=== PATIENT | male | born 1975 | race Hispanic/Latino ===

== ENCOUNTER 2018-11-13 01:46 | Inpatient (IN) | payer MEDICAID ==
--- NOTE | 2018-11-13 01:59 | C.PDOC ---
History Of Present Illness 43 year old male presents to the ED for evaluation of depression. Patient reports feeling more so tonight, states feeling "wanting to end everything". Patient denies active SI plan, HI, hallucinations, injury, fall, trauma. Chief Complaint (Nursing): Psychiatric Evaluation History Per: Patient History/Exam Limitations: no limitations Onset/Duration Of Symptoms: Days Current Symptoms Are (Timing): Still Present Suicide/Self Injury Attempted (Context): None Associated Symptoms: Depression. denies: Suicidal Thoughts, Suicidal Plan Recent travel outside of the [place]: No Additional History Per: Patient Past Medical History Reviewed: Historical Data, Nursing Documentation, Vital Signs Vital Signs: Last Vital Signs Temp 98.6 F 11/13/18 01:48 Pulse 78 11/13/18 01:48 Resp 20 11/13/18 01:48 BP 130/83 11/13/18 01:48 Pulse Ox 97 11/13/18 01:48 - Medical History PMH: Anxiety, Bipolar Disorder Surgical History: No Surg Hx Family History: States: Unknown Family Hx - Social History Hx Alcohol Use: No Hx Substance Use: No Review Of Systems Constitutional: Negative for: Fever, Chills Cardiovascular: Negative for: Chest Pain Respiratory: Negative for: Shortness of Breath Gastrointestinal: Negative for: Nausea, Vomiting, Abdominal Pain Skin: Negative for: Rash Psych: Positive for: Depression. Negative for: Suicidal ideation Physical Exam - Physical Exam Appears: Non-toxic, No Acute Distress Skin: Normal Color, Warm, Dry Head: Atraumatic, Normacephalic Eye(s): bilateral: Normal Inspection Neck: Normal ROM, Supple Chest: Symmetrical Cardiovascular: Rhythm Regular Respiratory: Normal Breath Sounds, No Rales, No Rhonchi, No Wheezing Gastrointestinal/Abdominal: Soft, No Tenderness Extremity: Normal ROM, No Tenderness, No Swelling Neurological/Psych: Oriented x3, Normal Speech, Normal Cognition Gait: Steady ED Course And Treatment - Laboratory Results Result Diagrams: 11/13/18 02:23 11/13/18 02:23 O2 Sat by Pulse Oximetry: 97 (ON RA) Pulse Ox Interpretation: Normal Medical Decision Making Medical Decision Making: Plan: * Labs * UA * Crisis eval Disposition Discussed With : Audelia Garrison Doctor Will See Patient In The: Hospital Counseled Patient/Family Regarding: Diagnosis - Disposition Disposition: HOSPITALIZED Disposition Time: 03:53 Condition: STABLE Forms: [facility] ([place]) - Clinical Impression Clinical Impression: Bipolar disorder - Scribe Statement The provider has reviewed the documentation as recorded by the Scribe Hay Fulton All medical record entries made by the Scribe were at my direction and personally dictated by me. I have reviewed the chart and agree that the record accurately reflects my personal performance of the history, physical exam, medical decision making, and the department course for this patient. I have also personally directed, reviewed, and agree with the discharge instructions and disposition.
[2018-11-13 02:28] LABS: BASO % 0.4 % (0.0-2.0); EOS # 0.1 K/uL (0.0-0.7); EOS % 0.8 % (0.0-4.0); HEMOGLOBIN 14.8 g/dL (12.0-18.0); LYMPH # 1.9 K/uL (1.0-4.3); LYMPH % 23.2 % (20.0-40.0); MEAN CELL VOLUME 92.6 fL (80.0-94.0); MEAN CORPUSCULAR HEMOGLOBIN 31.6 pg (27.0-31.0); MEAN CORPUSCULAR HGB CONC 34.2 g/dL (33.0-37.0); MEAN PLATELET VOLUME 7.5 fL (7.2-11.7); MONO # 0.6 K/uL (0.0-0.8); MONO % 7.5 % (0.0-10.0); NEUT # 5.5 K/uL (1.8-7.0); NEUT % 68.1 % (50.0-75.0); RBC 4.67 Mil/uL (4.40-5.90); RED CELL DISTRIBUTION WIDTH 13.7 % (11.5-14.5)
[2018-11-13 02:37] LABS: ALB/GLOB RATIO 1.5 (1.0-2.1); ALBUMIN 4.5 g/dL (3.5-5.0); ALT/SGPT 26 U/L (21-72); AST/SGOT 24 U/L (17-59); BLOOD UREA NITROGEN 16 mg/dL (9-20); CALCIUM 9.6 mg/dl (8.6-10.4); GFR NON-AFRICAN AMERICAN > 60
[2018-11-13 03:24] LABS: SQUAMOUS EPITHIAL < 1 /hpf (0-5); URINE BILIRUBIN NEGATIVE (NEGATIVE); URINE BLOOD NEGATIVE (NEGATIVE); URINE CLARITY Hazy (Clear); URINE COLOR Amber (YELLOW); URINE GLUCOSE (UA) NORMAL (Normal); URINE LEUKOCYTE ESTERASE NEG Leu/uL (Negative); URINE PROTEIN 1+ mg/dL (NEGATIVE); URINE UROBILINOGEN NORMAL mg/dL (0.2-1.0)
[2018-11-13 03:33] LABS: BARBITURATES, UR NEGATIVE (NEGATIVE); BENZODIAZEPINES, UR NEGATIVE (NEGATIVE); OPIATES, UR NEGATIVE (NEGATIVE); PHENCYCLIDINE, UR NEGATIVE (NEGATIVE)
--- NOTE | 2018-11-13 05:29 | PCM.BM ---
<Renan Landeros - Last Filed: 11/13/18 05:26> Treatment Plan Problems - Problems identified on initial assessmt Hopelessness/ Helplessness Date Initiated: 11/13/18 Time Initiated: 04:30 Assessment reference: NA Status: Active ALTERED SLEEP PATTERN Date Initiated: 11/13/18 Time Initiated: 04:30 Assessment reference: NA Status: Active INEFFECTIVE COPING Date Initiated: 11/13/18 Time Initiated: 04:30 Assessment reference: NA Status: Active Treatment assets and liabiliti Patient Assests: cooperative, self-reliant, ADL independent, physically healthy, good support system, negotiates basic needs Patient Liabilities: financial problems - Milieu Protocol Maintain good personal hygiene: daily Encourage regular showers, daily Remind patient to perform daily oral care, daily Assist patient to perform ADL's Conduct patient checks and document Observation sheet: Q15 minutes Maintain personal safety: every shift Educate patient to report safety concerns to staff, every shift Monitor environment for contraband/sharps Medication safety: Monitor for expected outcome, potential side effects: every shift, Assess barriers to learning: every shift, Assess readiness for medication education: every shift <Calvin Blair - Last Filed: 11/14/18 11:12> - Diagnosis (1) MDD (major depressive disorder) Status: Acute Interventions: 11/14/18 11:13 * Assess/adjust medications daily and /or as needed * See patient on an individual basis 7x/week to assess symptoms of depression * Monitor for side effects & effectiveness of medications * <Petty Reyes - Last Filed: 11/14/18 15:32> Family Contact Family involvement: Patient does not wish Family/SO involvement Family contact: Patient declines to allow family contact at present - Goals for Treatment Patient goals for treatment: "I want to go to an outpatient program." Discharge/Continuing Care - Education Needs Education Needs: Patient Medication, Patient Diagnosis/Disease Process, Patient Coping Skills, Patient Placement options, Patient Community resources - Discharge Discharge Criteria: Free of Suicidal thoughts, Normal sleep pattern, Ability to care for self, Reduction of target symptoms Discharge to:: Home, With Family - Treatment Team Participation Discussed with Family/SO: No Was Patient/Family/SO present at Treatment Team Meeting: Yes
--- NOTE | 2018-11-13 09:58 | PCM.PSYCH ---
Initial Psychiatric Evaluation - Initial Psychiatric Evaluation Type of Admission: Voluntary Legal Status: Capacity Chief Complaint (in patient's own words): I was feeling extremely depressed and suicidal.' History of Present Illness and Precipitating Events: Patient is a 43 yo CM, who and homeless, came to the with extremely depressed mood and suicidal ideation. Patient reports a long history of depression. He reports that, 'I feel like I'm a danger to myself if I don't get help'. Patient reports history of multiple inpatient psychiatric hospitalizations, last discharged from [facility] 6 months ago. As per the patient he did not follow-up with any psychiatrist after discharge and became noncompliant with that his treatment recommendations. He reports that 2 months ago he left his job and his apartment. As per the patient he became increasingly depressed since then. He reports depressed mood, feelings of hopelessness and helplessness and worthlessness. He reports poor sleep and poor appetite. He reports at times irritability, agitation and anxiety. However he denies any auditory or visual hallucinations any paranoia. He denies any drinking or any substances. Past medical history None reported Current Medications: Active Medications Generic Name Dose Route Start Last Admin Trade Name Freq PRN Reason Stop Dose Admin Hydroxyzine HCl 25 mg 11/13/18 04:51 Atarax PO Q6 PRN Anxiety Pneumococcal Polyvalent Vaccine 0.5 ml 11/14/18 10:00 Pneumovax 23 Vaccine IM 11/14/18 10:01 .ONCE ONE Past Psychiatric History - Past Psychiatric History Previous Treatment History: Inpatient Pertinent Medical Hx (Current Medical&Sleep Prob, Allergies): Allergies Allergy/AdvReac Type Severity Reaction Status Date / Time No Known Allergies Allergy Verified 11/13/18 01:47 Zoloft 200 mg PO DAILY 11/13/18 Review of Systems - Review of Systems All systems: reviewed and no additional remarkable complaints except - Psychiatric Psychiatric: Anxiety, Irritability, Suicidal Ideation Mental Status Examination - Personal Presentation Personal Presentation: Looks stated age - Affect Affect: Constricted, Depressed - Motor Activity Motor Activity: Psychomotor Retardation - Reliability in Providing Information Reliability in Providing Information: Poor, due to altered mood - Speech Speech: Organized - Mood Mood: Depressed, Anxious - Formal Thought Process Formal Thought Process: No Impairment - Obsessions/Compulsions Obsessions: No Compulsions: No - Cognitive Functions Orientation: Person, Place, Situation, Time Sensorium: Alert Attention/Concentration: Attentive Abstract Thinking: [place] Estimate of Intelligence: Below average Judgement: Imparied, as evidence by: Poor judgement, Imparied, as evidence by: Lack of insight into illness - Risk Risk: Suicidal, Diminished functioning - Limitations Limitations: Living alone DSM 5 DX - DSM 5 DSM 5 Diagnosis: Major depressive disorder recurrent severe without psychotic features Generalized anxiety disorder - Recommended/Plan of Treatment Treatment Recommendations and Plan of Treatment: Major depressive disorder recurrent severe without psychotic features Generalized anxiety disorder CBT Psychoeducation Supportive therapy and group therapy Zoloft for depression Hydroxyzine for anxiety Trazodone for insomnia Neurontin for augmentation - Smoking Cessation Smoking Cessation Initiated: No
[2018-11-14] MEDS ORDERED: Pneumococcal 23-Valent Vaccine IM ONE (10:00)
--- NOTE | 2018-11-14 10:43 | PCM.PYCHPN ---
Psychiatric Progress Note - Psychiatric Progress Note Patient seen today, length of contact: 15 min Patient Chief Complaint: I was feeling extremely depressed and suicidal.' Problems Identified/Issues Discussed: Patient was seen and evaluated, chart reviewed and discussed the staff. Patient still reports depressed mood, and feelings of hopelessness and helplessness. He reports poor sleep and appetite. He reports irritability, and anxiety. However he is taking medication but denies any side effects. Supportive therapy was given Medication Change: Yes Medical Record Reviewed: Yes Mental Status Examination - Cognitive Function Orientation: Person, Place, Situation, Time Memory: Intact Attention: WNL Concentration: Poor Association: WNL Fund of Knowledge: Poor - Mood Mood: Depressed, Anxious - Affect Affect: Constricted, Depressed - Speech Speech: Soft - Formal Thought Process Formal Thought Process: No Impairment - Suicidal Ideation Suicidal Ideation: No - Homicidal Ideation Homicidal Ideation: No Goal/Treatment Plan - Goal/Treatment Plan Need for Continued Stay: Remain at risks for inpatient hospitalization Progress Toward Problem(s) and Goals/Treatment Plan: Major depressive disorder recurrent severe without psychotic features Generalized anxiety disorder CBT Psychoeducation Supportive therapy and group therapy Zoloft for depression Hydroxyzine for anxiety Trazodone for insomnia Neurontin for augmentation [place] for the mood
--- NOTE | 2018-11-15 22:52 | PCM.PYCHPN ---
Psychiatric Progress Note - Psychiatric Progress Note Patient seen today, length of contact: 15 min Patient Chief Complaint: I am feeling little better. Problems Identified/Issues Discussed: Patient seen, chart reviewed, case discussed with the staff. Issues related to illness and treatment were discussed with the patient and staff. Reported compliant with treatment with no adverse effects. Tolerating treatment very well. Mood reported as anxious. Affect appropriate. Aftercare discussed with the patient. Denied any delusions, auditory or visual hallucinations, no suicidal ideations or homicidal ideations at the time of evaluation. Medical Problems: None reported Diagnostic Results: Reviewed DSM 5 Symptoms Update: Some improvement with treatment. Medication Change: No Medical Record Reviewed: Yes Mental Status Examination - Cognitive Function Orientation: Person, Place, Situation, Time Memory: Intact Attention: WNL Concentration: WNL Association: WN Fund of Knowledge: [facility] Decription of patient's judgement and insights: Fair - Mood Mood: Anxious - Affect Affect: Other (Appropriate) - Speech Speech: Soft - Formal Thought Process Formal Thought Process: No Impairment Psychotic Thoughts and Behaviors: None - Suicidal Ideation Suicidal Ideation: No - Homicidal Ideation Homicidal Ideation: No Goal/Treatment Plan - Goal/Treatment Plan Need for Continued Stay: Remain at risks for inpatient hospitalization, Discharge may exacerbated symptoms, Severe functional impairment Progress Toward Problem(s) and Goals/Treatment Plan: Patient education. Supportive therapy. Continue treatment as before. Estimated Date of D/C: 11/20/18 - Smoking Cessation Smoking Cessation Initiated: No
--- NOTE | 2018-11-17 21:04 | PCM.PYCHPN ---
Psychiatric Progress Note - Psychiatric Progress Note Patient seen today, length of contact: 15 min Patient Chief Complaint: I am feeling better. Can I go home. Problems Identified/Issues Discussed: Patient seen, chart reviewed, case discussed with the staff. Issues related to illness and treatment were discussed with the patient and staff. Reported compliant with treatment with no adverse effects. Tolerating treatment very well. Patient reported feeling much better and wants to go home. Staff reported that patient was isolative, withdrawn and manic. Refused to attend groups saying that groups are childish in juvenile and he knows will better than what the teaching the groups. Still encouraged the patient to attend the groups. Mood reported as okay. Affect appropriate. Patient is improving but still needs more time for stabilization. Aftercare discussed with the patient. Denied any delusions, auditory or visual hallucinations, no suicidal ideations or homicidal ideations at the time of evaluation. Medical Problems: None reported Diagnostic Results: Reviewed DSM 5 Symptoms Update: Some improvement with treatment Medication Change: No Medical Record Reviewed: Yes Mental Status Examination - Cognitive Function Orientation: Person, Place, Situation, Time Memory: Intact Attention: WNL Concentration: WNL Association: [facility] Fund of Knowledge: [facility] Decription of patient's judgement and insights: Fair - Mood Mood: Neutral - Affect Affect: Other (Appropriate) - Speech Speech: Soft - Formal Thought Process Formal Thought Process: No Impairment Psychotic Thoughts and Behaviors: None - Suicidal Ideation Suicidal Ideation: No - Homicidal Ideation Homicidal Ideation: No Goal/Treatment Plan - Goal/Treatment Plan Need for Continued Stay: Remain at risks for inpatient hospitalization, Discharge may exacerbated symptoms, Severe functional impairment Progress Toward Problem(s) and Goals/Treatment Plan: Patient education. Supportive therapy. Continue treatment as before. After discharge from the hospital patient will stay with his father. Estimated Date of D/C: 11/20/18 - Smoking Cessation Smoking Cessation Initiated: No
[2018-11-18 06:19] VITALS: O2SAT 96
--- NOTE | 2018-11-18 19:06 | PCM.PYCHPN ---
Psychiatric Progress Note - Psychiatric Progress Note Patient seen today, length of contact: 15 min Patient Chief Complaint: I am feeling better. Problems Identified/Issues Discussed: Patient seen, chart reviewed, case discussed with the staff. Issues related to illness and treatment were discussed with the patient and staff. Reported compliant with treatment with no adverse effects. Tolerating treatment very well. Patient reported feeling much better. Patient still appeared little grandiose. Staff reported that patient was less isolative, withdrawn and manic. Refused to attend groups saying that groups are childish and juvenile and he knows much bet ter than what they are teaching in the groups. Still encouraged the patient to attend the groups. Mood reported as okay. Affect appropriate. Patient is improving but still needs more time for stabilization. Aftercare discussed with the patient. Denied any delusions, auditory or visual hallucinations, no suicidal ideations or homicidal ideations at the time of evaluation. Medical Problems: None reported Diagnostic Results: Reviewed DSM 5 Symptoms Update: Some improvement with treatment. Medication Change: No Medical Record Reviewed: Yes Mental Status Examination - Cognitive Function Orientation: Person, Place, Situation, Time Memory: Intact Attention: WNL Concentration: WNL Association: [facility] Fund of Knowledge: [facility] Decription of patient's judgement and insights: Fair - Mood Mood: Neutral - Affect Affect: Other (Appropriate) - Speech Speech: Soft - Formal Thought Process Formal Thought Process: No Impairment Psychotic Thoughts and Behaviors: None - Suicidal Ideation Suicidal Ideation: No - Homicidal Ideation Homicidal Ideation: No Goal/Treatment Plan - Goal/Treatment Plan Need for Continued Stay: Remain at risks for inpatient hospitalization, Discharge may exacerbated symptoms, Severe functional impairment Progress Toward Problem(s) and Goals/Treatment Plan: Patient education. Supportive therapy. Continue treatment as before. After discharge from the hospital patient, will stay with his father. Patient will attend [facility] for follow-up care. Estimated Date of D/C: 11/20/18 - Smoking Cessation Smoking Cessation Initiated: No
[2018-11-19 06:53] VITALS: BP 121/77; PULSE 72; RESP 18; TEMP 98.1
--- NOTE | 2018-11-19 23:30 | PCM.PYCHDC ---
Mental Status Examination - Mental Status Examination Orientation: Person, Place, Situation, Time Memory: Intact Mood: Neutral Affect: Other (Appropriate) Speech: Appropriate Attention: WNL Concentration: WNL Association: WNL Fund of Knowledge: WNL Formal Thought Process: No Impairment Description of patient's judgement and insight: Fair Psychotic Thoughts and Behaviors: None Suicidal Ideation: No Current Homicidal Ideation?: No Discharge Summary - Discharge Note Reason for Hospitalization: Major depressive disorder recurrent severe without psychotic features Generalized anxiety disorder Laboratory Data: Reviewed Consultations:: List each consultation separately and include: 1. Reason for request. 2. Findings. 3. Follow-up Summary of Hospital Course include:: 1. Description of specific treatment plan utilized for patients during their course of treatmen. 2. Summarize the time- course for resolution of acute symptoms and/or regressed behaviors. 3. Describe issues identified and worked on during hospitalization. 4. Describe medication utilized. 5. Describe medical problems identified and treated. 6. Reassessment of suicide risk Summary of Hospital Course: Patient is a 43 yo CM, who and homeless, came to the with extremely depressed mood and suicidal ideation. Patient reports a long history of depression. He reports that, 'I feel like I'm a danger to myself if I don't get help'. Patient reports history of multiple inpatient psychiatric hospitalizations, last discharged from [facility] 6 months ago. As per the patient he did not follow-up with any psychiatrist after discharge and became noncompliant with that his treatment recommendations. He reports that 2 months ago he left his job and his apartment. As per the patient he became increasingly depressed since then. He reports depressed mood, feelings of hopelessness and helplessness and worthlessness. He reports poor sleep and poor appetite. He reports at times irritability, agitation and an xiety. However he denies any auditory or visual hallucinations any paranoia. He denies any drinking or any substances. Past medical history None reported During his stay in the hospital patient was treated with lithium, sertraline and trazodone. Most of the time patient was isolative in his room, was not attending groups as according to patient these drops were juvenile. With the above treatment patient started feeling better. Today patient was stable, mood for stable and was ready for discharge from the hospital. At the time of evaluation and discharge, patient was awake, alert and oriented x3, had no delusions, no auditory or visual hallucinations, no suicidal ideations or homicidal ideations. Patient was discharged in a stable condition. Patient will stay with his father and will have follow-up at [facility]. - Final Diagnosis (DSM 5) Condition upon Discharge: STABLE Disposition: HOME/ ROUTINE Follow-up Treatment Plan: Patient will attend [facility] for follow-up care. Prescriptions/Medication Reconciliation: Gabapentin [Neurontin] 100 mg PO TID #90 cap [place] Carbonate [[place] Carbonate 300MG] 300 mg PO TID #90 cap Sertraline [Zoloft] 200 mg PO DAILY #60 tab traZODone [Desyrel] 50 mg PO HS #30 tab - Smoking Cessation Smoking Cessation Medication prescribed: No - Antipsychotic Medications Pt discharged on 2 or more routine antipsychotic medications: No
== END 2018-11-19 11:15 | disposition home or self-care (01) | DRG 430 ==
LOC: C.ER 01:46 → C.5E 03:54
PROVIDERS: ADMIT Psychiatry & Neurology Psychiatry; ATTEND Psychiatry & Neurology Psychiatry
PROC: GZHZZZZ Group Psychotherapy (ICD-10-PCS; principal; 2018-11-13)
PROC: GZ56ZZZ Individual Psychotherapy, Supportive (ICD-10-PCS; 2018-11-13)
DX: F33.2 Major depressive disorder, recurrent severe without psychotic features (principal); F41.1 Generalized anxiety disorder; G47.00 Insomnia, unspecified; R45.851 Suicidal ideations; Z59.0 Homelessness; Z91.19 Patient's noncompliance with other medical treatment and regimen

== ENCOUNTER 2018-12-23 17:08 | Inpatient (IN) | payer MEDICAID ==
[2018-12-23 18:08] LABS: BASO % 0.6 % (0.0-2.0); EOS # 0.1 K/uL (0.0-0.7); EOS % 1.9 % (0.0-4.0); HEMOGLOBIN 14.4 g/dL (12.0-18.0); LYMPH # 1.8 K/uL (1.0-4.3); LYMPH % 27.2 % (20.0-40.0); MEAN CELL VOLUME 91.4 fL (80.0-94.0); MEAN CORPUSCULAR HEMOGLOBIN 31.9 pg (27.0-31.0); MEAN PLATELET VOLUME 7.3 fL (7.2-11.7); MONO # 0.4 K/uL (0.0-0.8); MONO % 6.3 % (0.0-10.0); NEUT # 4.1 K/uL (1.8-7.0); RBC 4.5 Mil/uL (4.40-5.90); RED CELL DISTRIBUTION WIDTH 13.2 % (11.5-14.5); WHITE BLOOD COUNT 6.5 K/uL (4.8-10.8)
[2018-12-23 18:26] LABS: URINE BILIRUBIN NEGATIVE (NEGATIVE); URINE BLOOD NEGATIVE (NEGATIVE); URINE CLARITY Clear (Clear); URINE COLOR Yellow (YELLOW); URINE GLUCOSE (UA) NORMAL (Normal); URINE LEUKOCYTE ESTERASE NEG Leu/uL (Negative); URINE PROTEIN NEGATIVE (NEGATIVE); URINE UROBILINOGEN NORMAL mg/dL (0.2-1.0)
[2018-12-23 18:27] LABS: ALB/GLOB RATIO 1.4 (1.0-2.1); ALBUMIN 4.3 g/dL (3.5-5.0); ALT/SGPT 34 U/L (21-72); AST/SGOT 21 U/L (17-59); BLOOD UREA NITROGEN 12 mg/dL (9-20); CALCIUM 9.6 mg/dl (8.6-10.4); GFR NON-AFRICAN AMERICAN > 60
[2018-12-23 18:48] LABS: BARBITURATES, UR NEGATIVE (NEGATIVE); BENZODIAZEPINES, UR NEGATIVE (NEGATIVE); OPIATES, UR NEGATIVE (NEGATIVE); PHENCYCLIDINE, UR NEGATIVE (NEGATIVE)
--- NOTE | 2018-12-23 19:11 | C.PDOC ---
History Of Present Illness 43 year old male presents stating he is suicidal. Patient has psych Hx on trazodone and lithium, 2 night ago reports taking 5-6 trazodone with intention of following asleep. He states he woke up the following morning groggy and feel ing hungover. Denies vomiting, nausea, abdominal pain, or dizziness. <Lynsey Tamayo - Last Filed: 12/23/18 19:17> History Per: Patient History/Exam Limitations: no limitations Onset/Duration Of Symptoms: Hrs Current Symptoms Are (Timing): Still Present Associated Symptoms: Suicidal Thoughts Recent travel outside of the [place]: No <Lynsey Tamayo - Last Filed: 12/23/18 19:17> <Samantha Hauser - Last Filed: 12/23/18 19:35> Time Seen by Provider: 12/23/18 17:44 Chief Complaint (Nursing): Psychiatric Evaluation Past Medical History Reviewed: Historical Data, Nursing Documentation, Vital Signs Vital Signs: Last Vital Signs Temp 98.4 F 12/23/18 17:16 Pulse 89 12/23/18 17:16 Resp 20 12/23/18 17:16 BP 124/84 12/23/18 17:16 Pulse Ox 97 12/23/18 17:16 Primary Care Provider: FAMILY PROVIDER,NO - Medical History PMH: Anxiety, Bipolar Disorder, Depression Denies: Diabetes, Hepatitis, HIV, HTN, Chronic Kidney Disease, Seizures, Sexually Transmitted Disease - [facility] Procedures GROUP PSYCHOTHERAPY (11/13/18) INDIVIDUAL PSYCHOTHERAPY, SUPPORTIVE (11/13/18) Family History: States: Unknown Family Hx - Social History Hx Alcohol Use: No (Ex drinker) Hx Substance Use: No - Immunization History Hx Influenza Vaccination: Yes (2019) Hx Pneumococcal Vaccination: No <Lynsey Tamayo - Last Filed: 12/23/18 19:17> Vital Signs: Last Vital Signs Temp 98.4 F 12/23/18 17:16 Pulse 89 12/23/18 17:16 Resp 20 12/23/18 17:16 BP 124/84 12/23/18 17:16 Pulse Ox 97 12/23/18 19:23 - [facility] Procedures GROUP PSYCHOTHERAPY (11/13/18) INDIVIDUAL PSYCHOTHERAPY, SUPPORTIVE (11/13/18) <Samantha Hauser - Last Filed: 12/23/18 19:35> Review Of Systems Constitutional: Negative for: Fever, Chills Cardiovascular: Negative for: Chest Pain, Palpitations Respiratory: Negative for: Cough, Shortness of Breath Gastrointestinal: Negative for: Nausea, Vomiting Neurological: Negative for: Weakness, Numbness Psych: Positive for: Suicidal ideation <Lynsey Tamayo M - Last Filed: 12/23/18 19:17> Physical Exam - Physical Exam Appears: Non-toxic, Other (Awake, alert, cooperative, calm) Skin: Normal Color, Warm Head: Atraumatic, Normacephalic Eye(s): bilateral: Normal Inspection Oral Mucosa: Moist Neck: Normal, Supple Chest: Symmetrical, No Tenderness Cardiovascular: Rhythm Regular Respiratory: Normal Breath Sounds, No Rales, No Rhonchi, No Wheezing Gastrointestinal/Abdominal: Soft, No Tenderness Neurological/Psych: Oriented x3, Normal Speech <Lynsey Tamayo - Last Filed: 12/23/18 19:17> ED Course And Treatment - Laboratory Results Result Diagrams: 12/23/18 18:03 12/23/18 18:03 Lab Results: Total Bilirubin 0.6 mg/dL (0.2-1.3) 12/23/18 18:03 AST 21 U/L (17-59) 12/23/18 18:03 ALT 34 U/L (21-72) 12/23/18 18:03 Alkaline Phosphatase 92 U/L (38-126) 12/23/18 18:03 Total Protein 7.3 g/dL (6.3-8.3) 12/23/18 18:03 Albumin 4.3 g/dL (3.5-5.0) 12/23/18 18:03 Globulin 3.0 gm/dL (2.2-3.9) 12/23/18 18:03 Albumin/Globulin Ratio 1.4 (1.0-2.1) 12/23/18 18:03 Urine Color Yellow (YELLOW) 12/23/18 18:13 Urine Clarity Clear (Clear) 12/23/18 18:13 Urine pH 5.0 (5.0-8.0) 12/23/18 18:13 Ur Specific [place] 1.017 (1.003-1.030) 12/23/18 18:13 Urine Protein Negative mg/dL (NEGATIVE) 12/23/18 18:13 Urine Glucose (UA) Normal mg/dL (Normal) 12/23/18 18:13 Urine Ketones Negative mg/dL (NEGATIVE) 12/23/18 18:13 Urine Blood Negative (NEGATIVE) 12/23/18 18:13 Urine Nitrate Negative (NEGATIVE) 12/23/18 18:13 Urine Bilirubin Negative (NEGATIVE) 12/23/18 18:13 Urine Urobilinogen Normal mg/dL (0.2-1.0) 12/23/18 18:13 Ur Leukocyte Esterase Neg Nixon/uL (Negative) 12/23/18 18:13 Urine WBC (Auto) < 1 /hpf (0-5) 12/23/18 18:13 Urine RBC (Auto) < 1 /hpf (0-3) 12/23/18 18:13 O2 Sat by Pulse Oximetry: 97 (Room air) Pulse Ox Interpretation: Normal <Lynsey Tamayo - Last Filed: 12/23/18 19:17> - Laboratory Results Result Diagrams: 12/23/18 18:03 12/23/18 18:03 Lab Results: Total Bilirubin 0.6 mg/dL (0.2-1.3) 12/23/18 18:03 AST 21 U/L (17-59) 12/23/18 18:03 ALT 34 U/L (21-72) 12/23/18 18:03 Alkaline Phosphatase 92 U/L (38-126) 12/23/18 18:03 Total Protein 7.3 g/dL (6.3-8.3) 12/23/18 18:03 Albumin 4.3 g/dL (3.5-5.0) 12/23/18 18:03 Globulin 3.0 gm/dL (2.2-3.9) 12/23/18 18:03 Albumin/Globulin Ratio 1.4 (1.0-2.1) 12/23/18 18:03 Urine Color Yellow (YELLOW) 12/23/18 18:13 Urine Clarity Clear (Clear) 12/23/18 18:13 Urine pH 5.0 (5.0-8.0) 12/23/18 18:13 Ur Specific [place] 1.017 (1.003-1.030) 12/23/18 18:13 Urine Protein Negative mg/dL (NEGATIVE) 12/23/18 18:13 Urine Glucose (UA) Normal mg/dL (Normal) 12/23/18 18:13 Urine Ketones Negative mg/dL (NEGATIVE) 12/23/18 18:13 Urine Blood Negative (NEGATIVE) 12/23/18 18:13 Urine Nitrate Negative (NEGATIVE) 12/23/18 18:13 Urine Bilirubin Negative (NEGATIVE) 12/23/18 18:13 Urine Urobilinogen Normal mg/dL (0.2-1.0) 12/23/18 18:13 Ur Leukocyte Esterase Neg Nixon/uL (Negative) 12/23/18 18:13 Urine WBC (Auto) < 1 /hpf (0-5) 12/23/18 18:13 Urine RBC (Auto) < 1 /hpf (0-3) 12/23/18 18:13 <Samantha Hauser - Last Filed: 12/23/18 19:35> Medical Decision Making Medical Decision Making: Patient seen by crisis, pending final dispose, endorsed to Dr. Hauser at the end of my shift. <Lynsey Tamayo - Last Filed: 12/23/18 19:17> Medical Decision Making: Patient is medically cleared for psych admission. Accepted by Dr Garrison for admission for Bipolar disorder. <Samantha Hauser - Last Filed: 12/23/18 19:35> Disposition - Disposition Disposition Time: 19:10 - POA Present On Arrival: None <Lynsey Tamayo - Last Filed: 12/23/18 19:17> <Samantha Hauser - Last Filed: 12/23/18 19:35> - Disposition Disposition: HOSPITALIZED Condition: STABLE - Clinical Impression Clinical Impression: Suicidal ideations, Bipolar disorder - Scribe Statement The provider has reviewed the documentation as recorded by the Scribe Derek Hurtado All medical record entries made by the Scribe were at my direction and personally dictated by me. I have reviewed the chart and agree that the record accurately reflects my personal performance of the history, physical exam, medical decision making, and the department course for this patient. I have also personally directed, reviewed, and agree with the discharge instructions and disposition. <Lynsey Tamayo - Last Filed: 12/23/18 19:17> Physician Patient Turnover Patient Signed Over To: Samantha Hauser Handoff Comments: pending crisis eval and dispo <Lynsey Tamayo - Last Filed: 12/23/18 19:17>
--- NOTE | 2018-12-23 21:31 | PCM.BM ---
<MicheleCarissa - Last Filed: 12/23/18 21:28> Treatment Plan Problems - Problems identified on initial assessmt Hopelessness/Helplessness Date Initiated: 12/23/18 Time Initiated: 20:02 Assessment reference: NA Status: Active Medication nonadherence Date Initiated: 12/23/18 Time Initiated: 20:02 Assessment reference: NA Status: Active Suicidal Ideation Date Initiated: 12/23/18 Time Initiated: 20:02 Assessment reference: NA Status: Active Treatment assets and liabiliti Patient Assests: cooperative, self-reliant, ADL independent, physically healthy, good support system, negotiates basic needs Patient Liabilities: poor support system, relationship conflicts, substance abuse (History of alcohol abuse) - Milieu Protocol Maintain good personal hygiene: daily Encourage regular showers, daily Remind patient to perform daily oral care, every shift Assist patient to perform ADL's Maintain personal safety: every shift Educate patient to report safety concerns to staff, every shift Monitor environment for contraband/sharps Medication safety: Monitor for expected outcome, potential side effects: every shift, Assess barriers to learning: every shift, Assess readiness for medication education: every shift <Audelia Garrison - Last Filed: 12/24/18 13:40> - Diagnosis (1) Bipolar disorder Status: Acute Interventions: 12/24/18 13:40 * Assess/adjust medications daily and /or as needed * See patient on an individual basis 7x/week to assess level of manic behaviors and stability * Discuss risks, benefits, side effects and alternatives of medications * <Brianne Arambula - Last Filed: 12/24/18 14:06> Family Contact Family involvement: Family/SO is involved Family contact: Patient agrees to contact Family contact name: Catherine Kaiser-mother Family contacted how many times per week?: 1 - Goals for Treatment Patient goals for treatment: "I need a partial care program." Discharge/Continuing Care - Education Needs Education Needs: Patient Medication, Patient Coping Skills - Discharge Discharge Criteria: Tolerates medication w/o severe side effects, Reduction of target symptoms Discharge to:: Home - Treatment Team Participation Discussed with Family/SO: No Was Patient/Family/SO present at Treatment Team Meeting: Yes
--- NOTE | 2018-12-24 09:45 | RAD ---
Date of service: 12/23/2018 HISTORY: Detox/Psy COMPARISON: None available. TECHNIQUE: 1 view obtained. FINDINGS: LUNGS: No active pulmonary disease. PLEURA: No significant pleural effusion identified, no pneumothorax apparent. CARDIOVASCULAR: No aortic atherosclerotic calcification present. Normal cardiac size. No pulmonary vascular congestion. OSSEOUS STRUCTURES: No significant abnormalities. VISUALIZED UPPER ABDOMEN: Normal. OTHER FINDINGS: None. IMPRESSION: No active disease.
--- NOTE | 2018-12-24 11:57 | PCM.PSYCH ---
Initial Psychiatric Evaluation - Initial Psychiatric Evaluation Type of Admission: Voluntary Legal Status: Capacity Chief Complaint (in patient's own words): "I am not well I was suicidal" History of Present Illness and Precipitating Events: He is seen with the team, known from before, chart reviewed, case discussed. Patient is a 43 year-old, male, who is single, unemployed, and lives part-time with his father in [place], [place]. He states that he has no children and a poor relationship with most of his immediate family. He comes to [facility] due to suicidal ideations for the past three months. He had a suicide attempt last Saturday (Dec 21 2018), when he ingested the full bottle of Trazodone pills at once. He states that he is suicidal because he has nothing going for me and that he would be better off . His girlfriend in 2009 which he states, weighs heavily on him, and he also has suffered the loss of his cat and grandparents since then. He has a history of alcohol use disorder, but states that he has been sober for 2 years. He denies any medical disorders or use of illicit substances. He was last hospitalized for his psychiatric disorder 30 days ago at [facility], where he was put on gabapentin, lithium, sertraline, and trazodone. He was referred to an outpatient program in [place], [place], but did not follow up. He states that he was unable to seek care due to his lack of family support. As per chart, he has been hospitalized multiple times for severe depressive episodes. He was also in intensive program and [facility] He reports depressed mood, feeling of hopelessness and worthlessness, and denies any paranoid thoughts or hallucinations. He is however thought disordered, hyperactive, has high energy, racing thoughts, looks elated. Past Psychiatric History: bipolar disorder, generalized anxiety disorder, multiple inpatient hospitalization (most recent in November 2018) Family Psych History: n/a Past Medical History: denies Past Surgical History: n/a Current Medications: Active Medications Generic Name Dose Route Start Last Admin Trade Name Freq PRN Reason Stop Dose Admin Hydroxyzine HCl 50 mg 12/23/18 20:57 Atarax PO Q6H PRN Anxiety Ibuprofen 600 mg 12/23/18 21:00 Motrin Tab PO Q6H PRN Pain, moderate (4-7) Sertraline HCl 50 mg 12/24/18 10:00 12/24/18 10:30 Zoloft PO 50 mg DAILY SYED Administration Trazodone HCl 100 mg 12/23/18 20:57 Desyrel PO HS PRN Insomnia Past Psychiatric History - Past Psychiatric History Previous Treatment History: Inpatient Pertinent Medical Hx (Current Medical&Sleep Prob, Allergies): Allergies Allergy/AdvReac Type Severity Reaction Status Date / Time No Known Allergies Allergy Verified 12/23/18 17:20 Gabapentin [Neurontin] 100 mg PO TID #90 cap 11/19/18 Pisgah Carbonate [Pisgah Carbonate 300MG] 300 mg PO TID #90 cap 11/19/18 traZODone [Desyrel] 50 mg PO HS #30 tab 11/19/18 Sertraline [Zoloft] 100 mg PO DAILY 12/23/18 Review of Systems - Psychiatric Psychiatric: Abnormal Sleep Pattern, Anhedonia, Anxiety, Behavioral Changes, Change in Appetite, Depression, Difficulty Concentrating, Irritability, Mood Swings. absent: Hallucinations, Homicidal Ideation, Hopelessness, Paranoia, Suicidal Ideation Mental Status Examination - Personal Presentation Personal Presentation: Looks stated age - Affect Affect: Constricted - Motor Activity Motor Activity: Calm - Reliability in Providing Information Reliability in Providing Information: Poor, due to alteration in thoughts - Speech Speech: Disorganized - Mood Mood: Depressed, Other (irritable) - Formal Thought Process Formal Thought Process: Paranoia, Loosening of associations, Circumstantial - Cognitive Functions Orientation: Person, Place, Situation, Time Sensorium: Alert Attention/Concentration: Easily distracted Abstract Thinking: [place] Estimate of Intelligence: Average Judgement: Intact, as evidence by: Insight regarding need for hospitalization Memory: Recent intact, as evidence by: Ability to recall events of the day, Remote impaired as evidenced by: Inability to recall sig life events - Risk Risk: Diminished functioning - Strength & Assets Inventory Strength & Assets Inventory: Cooperative DSM 5 DX - DSM 5 DSM 5 Diagnosis: Bipolar 1 d/o - mixed episode, severe PAT Personality d/o - unspecified Alcohol use d/o in remission - Recommended/Plan of Treatment Treatment Recommendations and Plan of Treatment: Start lithium and zooft again gabapentin for anxiety As need medications All risks, benefits and alternatives of the meds discussed, and the pt agreed and understood. Attend groups and activities Individual therapy daily Psychoeducation and support daily Encourage compliance with meds and after care Refer to outpatient program Teach healthy lifestyle methods, i.e. diet, exercise, meditation Smoking cessation and patch if needed 32 min Projected ELOS: 5-7 days - Smoking Cessation Smoking Cessation Initiated: Yes
--- NOTE | 2018-12-24 23:58 | CARD ---
APPROVED REPORT Date of service: 12/23/2018 EKG Measurement Heart [id number] <Conclusion> Normal sinus rhythm Normal ECG
--- NOTE | 2018-12-26 08:42 | PCM.PYCHPN ---
Psychiatric Progress Note - Psychiatric Progress Note Patient seen today, length of contact: 15 min Patient Chief Complaint: "I'm better" Problems Identified/Issues Discussed: The pt is seen, chart reviewed, case is discussed with staff. Support and psychoeducation given The pt is improving slowly but needs more time due to severity of symptoms and relapse risk. No SEs from medications, risks discussed. After care discussed Medication Change: Yes Medical Record Reviewed: Yes Mental Status Examination - Cognitive Function Orientation: Person, Place, Situation, Time Memory: Intact Attention: Poor Concentration: Poor Association: Loose Fund of Knowledge: WNL - Mood Mood: Depressed, Other (irritable) - Affect Affect: Constricted - Speech Speech: Pressured - Formal Thought Process Formal Thought Process: Paranoia, Loosening of associations (less), Circumstantial - Suicidal Ideation Suicidal Ideation: No - Homicidal Ideation Homicidal Ideation: No Goal/Treatment Plan - Goal/Treatment Plan Need for Continued Stay: Discharge may exacerbated symptoms, Severe functional impairment Progress Toward Problem(s) and Goals/Treatment Plan: Started lithium and zoloft again gabapentin for anxiety As need medications All risks, benefits and alternatives of the meds discussed, and the pt agreed and understood. Attend groups and activities Individual therapy daily Psychoeducation and support daily Encourage compliance with meds and after care Refer to outpatient program Teach healthy lifestyle methods, i.e. diet, exercise, meditation Smoking cessation and patch if needed
--- NOTE | 2018-12-26 08:42 | PCM.PYCHPN ---
Psychiatric Progress Note - Psychiatric Progress Note Patient seen today, length of contact: 15 min Patient Chief Complaint: "I am so so" Problems Identified/Issues Discussed: The pt is seen, chart reviewed, case discussed with staff. The pt is compliant with medications and reports no side-effects. Symptoms are improving but needs more time to stabilize. Pt attends groups and activities. Support given, psycho-education provided. After care discussed. Medication Change: Yes Medical Record Reviewed: Yes Mental Status Examination - Cognitive Function Orientation: Person, Place, Situation, Time Memory: Intact Attention: Poor Concentration: Poor Association: Loose Fund of Knowledge: WNL - Mood Mood: Depressed, Other (irritable) - Affect Affect: Constricted - Speech Speech: Pressured - Formal Thought Process Formal Thought Process: Paranoia, Loosening of associations (less), Circumstantial - Suicidal Ideation Suicidal Ideation: No - Homicidal Ideation Homicidal Ideation: No Goal/Treatment Plan - Goal/Treatment Plan Need for Continued Stay: Discharge may exacerbated symptoms, Severe functional impairment Progress Toward Problem(s) and Goals/Treatment Plan: Started lithium and zoloft again gabapentin for anxiety As need medications All risks, benefits and alternatives of the meds discussed, and the pt agreed and understood. Attend groups and activities Individual therapy daily Psychoeducation and support daily Encourage compliance with meds and after care Refer to outpatient program Teach healthy lifestyle methods, i.e. diet, exercise, meditation Smoking cessation and patch if needed
--- NOTE | 2018-12-27 20:03 | PCM.PYCHPN ---
Psychiatric Progress Note - Psychiatric Progress Note Patient seen today, length of contact: 15 min Patient Chief Complaint: "I still feel so-so" Problems Identified/Issues Discussed: Patient was seen and chart was reviewed. Case was discussed with treatment team. Issues related to the illness and treatments were discussed with the patient, and issues related to illness and treatments were discussed with the patient and staff. Patient reported compliance with treatment and no adverse effects from the medications were reported. Patient is tolerating treatment well at this time. Patient reports mood as improved, affect is congruent with mood. Aftercare was discussed with patient and he verbalized understanding. Patient denies any delusions, auditory/visual hallucinations, or perceptual disturbances. Patient also denies any suicidal or homicidal ideation/plan/intent at this time. Medication Change: Yes Medical Record Reviewed: Yes Mental Status Examination - Cognitive Function Orientation: Person, Place, Situation, Time Memory: Intact Attention: Poor Concentration: Poor Association: Loose Fund of Knowledge: WNL - Mood Mood: Depressed, Other (irritable) - Affect Affect: Constricted - Speech Speech: Pressured - Formal Thought Process Formal Thought Process: Paranoia, Loosening of associations (less), Circumstantial - Suicidal Ideation Suicidal Ideation: No - Homicidal Ideation Homicidal Ideation: No Goal/Treatment Plan - Goal/Treatment Plan Need for Continued Stay: Discharge may exacerbated symptoms, Severe functional impairment Progress Toward Problem(s) and Goals/Treatment Plan: Continue medications Support and psychoeducation daily Attend groups and activities daily Individual therapy After care planning by ROBERTO and the team
[2018-12-28 09:51] VITALS: RESP 20
[2018-12-29 09:50] VITALS: TEMP 97.6
[2018-12-29 11:42] LABS: BLOOD UREA NITROGEN 13 mg/dL (9-20); CALCIUM 9.1 mg/dl (8.6-10.4); GFR NON-AFRICAN AMERICAN > 60
--- NOTE | 2018-12-29 22:54 | PCM.PYCHPN ---
Psychiatric Progress Note - Psychiatric Progress Note Patient seen today, length of contact: 15 min Patient Chief Complaint: "I want to see a doctor" Problems Identified/Issues Discussed: The pt is seen, chart reviewed, case is discussed with staff. Support and psychoeducation given, CBT and VT used briefly The pt is improving slowly but needs more time due to severity of symptoms and relapse risk. 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 After care discussed Medication Change: Yes Medical Record Reviewed: Yes Mental Status Examination - Cognitive Function Orientation: Person, Place, Situation, Time Memory: Intact Attention: Poor Concentration: Poor Association: Loose Fund of Knowledge: WNL - Mood Mood: Depressed, Other (irritable) - Affect Affect: Constricted - Speech Speech: Pressured - Formal Thought Process Formal Thought Process: Paranoia, Loosening of associations (less), Circumstantial - Suicidal Ideation Suicidal Ideation: No - Homicidal Ideation Homicidal Ideation: No Goal/Treatment Plan - Goal/Treatment Plan Need for Continued Stay: Discharge may exacerbated symptoms, Severe functional impairment Progress Toward Problem(s) and Goals/Treatment Plan: Continue medications Support and psychoeducation daily Attend groups and activities daily Individual therapy After care planning by ROBERTO and the team
[2018-12-30 07:12] VITALS: PULSE 67; O2SAT 98
--- NOTE | 2018-12-30 09:42 | PCM.PYCHDC ---
Mental Status Examination - Mental Status Examination Orientation: Person Discharge Summary - Discharge Note Laboratory Data: Abnormal Lab Results 12/29/18 12/29/18 11:21 11:21 Sodium 139 Potassium 4.1 Chloride 100 Carbon Dioxide 30 Anion Gap 13 BUN 13 Creatinine 0.8 Est GFR ( Amer) > 60 Est GFR (Non-Af Amer) > 60 Random Glucose 123 H Calcium 9.1 TSH 3rd Generation 2.68 Broseley 0.4 L Consultations:: List each consultation separately and include: 1. Reason for request. 2. Findings. 3. Follow-up Summary of Hospital Course include:: 1. Description of specific treatment plan utilized for patients during their course of treatmen. 2. Summarize the time- course for resolution of acute symptoms and/or regressed behaviors. 3. Describe issues identified and worked on during hospitalization. 4. Describe medication utilized. 5. Describe medical problems identified and treated. 6. Reassessment of suicide risk Summary of Hospital Course: He is seen with the team, known from before, chart reviewed, case discussed. Patient is a 43 year-old, male, who is single, unemployed, and lives part-time with his father in [place], [place]. He states that he has no children and a poor relationship with most of his immediate family. He comes to [facility] due to suicidal ideations for the past three months. He had a suicide attempt last Saturday (Dec 21 2018), when he ingested the full bottle of Trazodone pills at once. He states that he is suicidal because he has nothing going for me and that he would be better off . His girlfriend in 2009 which he states, weighs heavily on him, and he also has suffered the loss of his cat and grandparents since then. He has a history of alcohol use disorder, but states that he has been sober for 2 years. He denies any medical disorders or use of illicit substances. He was last hospitalized for his psychiatric disorder 30 days ago at [facility], where he was put on gabapentin, lithium, sertraline, and trazodone. He was referred to an outpatient program in [place], [place], but did not follow up. He states that he was unable to seek care due to his lack of family support. As per chart, he has been hospitalized multiple times for severe depressive episodes. 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 He is however thought disordered, hyperactive, has high energy, racing thoughts, looks elated. Past Psychiatric History: bipolar disorder, generalized anxiety disorder, multiple inpatient hospitalization (most recent in November 2018) Family Psych History: n/a Past Medical History: denies Past Surgical History: n/a He will go to [facility]. - Diagnosis (1) Bipolar disorder Current Visit: Yes Status: Acute - Final Diagnosis (DSM 5) Condition upon Discharge: STABLE Disposition: HOME/ ROUTINE Follow-up Treatment Plan: Started lithium and zoloft again gabapentin for anxiety As need medications All risks, benefits and alternatives of the meds discussed, and the pt agreed and understood. Attend groups and activities Individual therapy daily Psychoeducation and support daily Encourage compliance with meds and after care Refer to outpatient program Teach healthy lifestyle methods, i.e. diet, exercise, meditation Smoking cessation and patch if needed Prescriptions/Medication Reconciliation: Gabapentin [Neurontin] 300 mg PO TID #90 cap Broseley Carbonate [Broseley Carbonate 300MG] 300 mg PO TID #90 cap Sertraline [Zoloft] 50 mg PO DAILY #30 tab traZODone [Desyrel] 100 mg PO HS PRN #30 tab PRN Reason: Insomnia
[2018-12-30 12:11] VITALS: BP 113/76
== END 2018-12-30 12:30 | disposition home or self-care (01) | DRG 430 ==
LOC: C.ER 17:08 → C.5E 19:35
PROVIDERS: ADMIT Psychiatry & Neurology Psychiatry; ATTEND Psychiatry & Neurology Psychiatry
DX: F31.9 Bipolar disorder, unspecified (principal); F41.1 Generalized anxiety disorder; R45.851 Suicidal ideations; Z91.5 Personal history of self-harm